=== PATIENT | male | born 1960 | race Caucasian/White ===

== ENCOUNTER → 2016-07-15 | Outpatient (CLI) | payer OTHER ==
[~2016-07-15] MED LIST: AUGMENTIN875 MG PO; BACTRIM,SEPT1 TABLET PO; CIPRO500 MG PO; DAILY VITAMIN1 EAC8 PO; DOXYCYCLINE HY100 MG PO; DULCOLAX10 MG PR; EC-NAPROSYN500 MG PO; FLAGYL500 MG PO; FLEET ENEMA-AD118 ML PR; HEPARIN SO5000 UNITS SC; KEFLEX500 MG PO; KLONOPIN0.5 M1 PO; LEVAQUIN500 MG PO; LEVAQUIN750 MG PO; LEVEMIR100 UNIT/2 SC; LISINOPRIL20 MG PO; LOW DOSE ASPIRI81 M1 PO; MELOXICAM15 MG; MORPHINE SULFAT15 MG PO; NOVOLOG PE100 UNITS/ SC; NYSTOP60 GM TP; OXYCODONE HCL5 M1 PO; PERCOCET 5/31 TABLET PO; PROTONIX40 M1 PO; QUETIAPINE FUM400 MG PO; QUETIAPINE FUMA25 MG PO; ROXICODONE5 MG PO; SEROQUEL XR150 MG PO; SEROQUEL100 MG PO; SEROQUEL200 MG PO; TYLENOL REGULA325 MG PO; TYLENOL WITH C1 EACH PO; VALIUM5 MG PO; VICODIN,LORT1 TABLET PO; ZESTRIL,PRINIVI10 M1; ZOFRAN4 MG PO
== END | disposition home or self-care (01) ==
DX: R26.2 Difficulty in walking, not elsewhere classified (principal); M62.81 Muscle weakness (generalized); M25.552 Pain in left hip; M25.652 Stiffness of left hip, not elsewhere classified
CPT/HCPCS: 97110 GP; 97150 GO; 97161 GP; 97165 GO; G8978 GP; G8979 GP; G8980 GP; G8987 GO; G8988 GO; G8989 GO

== ENCOUNTER 2016-08-11 05:32 | Inpatient (IN) | payer OTHER ==
[~2016-08-11] VITALS: Ht 170.2 cm; Wt 111.1 kg
[~2016-08-11 05:32] MED LIST changes: +LEVEMIR FL100 UNIT/1 SC; +METFORMIN HCL500 MG PO
[2016-08-11 06:33] VITALS: BP 171/117
[2016-08-11 06:43] LABS: POINT-OF-CARE METER ID UU14174212
[2016-08-11 07:19] VITALS: BP 156/96
[2016-08-11 09:42] LABS: POINT-OF-CARE METER ID UU13113675
[2016-08-11 11:24] LABS: HEMATOCRIT 43.7 % (38.0-50.0); MCH 30.1 PG (29.0-34.0); MCV 91.2 FL (86-99); MEAN PLAT.VOLUME 9.4 uM^3 (9.0-12.4); PLATELET COUNT 429 K/uL (156-360); RBC DIS.WIDTH-SD 54.4 % (39-53); RED BLOOD COUNT 4.79 M/uL (4.00-5.50)
[2016-08-11 11:47] LABS: WHITE BLOOD COUNT 24.5 K/uL (4.1-10.2)
[2016-08-11 12:27] VITALS: BP 151/94
[2016-08-11 12:33] LABS: POINT-OF-CARE METER ID UU13113712
[2016-08-11 15:48] VITALS: BP 135/62
[2016-08-11 16:37] LABS: POINT-OF-CARE METER ID UU13113712
[2016-08-11 20:05] VITALS: BP 143/98
[2016-08-11 22:10] LABS: POINT-OF-CARE METER ID UU13113712
[2016-08-12] VITALS (7 sets, daily range): BP systolic 119–140; BP diastolic 65–90
[2016-08-12 05:55] LABS: ANION GAP 8 MEQ/L (2-14); CHLORIDE 102 MEQ/L (99-109); GFR ESTIMATE (CALCULATED) > 59 mL/min/; GLUCOSE 140 mg/dL (70-99); POTASSIUM 4.6 MEQ/L (3.7-5.4); SAMPLE HEMOLYSIS CHECK 0; SAMPLE ICTERIC CHECK 0; SAMPLE LIPEMIA CHECK 0; SODIUM 136 MEQ/L (136-147); UREA NITROGEN (BUN) 13 mg/dL (9-23)
[2016-08-12 06:08] LABS: HEMATOCRIT 40.5 % (38.0-50.0); MCV 91.2 FL (86-99)
[2016-08-12 11:44] LABS: POINT-OF-CARE METER ID UU13113712
[2016-08-12 16:18] LABS: POINT-OF-CARE METER ID UU13113712
[2016-08-12 22:14] LABS: POINT-OF-CARE METER ID UU13113712
[2016-08-13 00:28] VITALS: BP 116/62
[2016-08-13 04:00] VITALS: BP 130/79
[2016-08-13 05:30] LABS: HEMATOCRIT 41.4 % (38.0-50.0); MCV 91.4 FL (86-99)
[2016-08-13 05:53] LABS: ANION GAP 7 MEQ/L (2-14); CHLORIDE 104 MEQ/L (99-109); GFR ESTIMATE (CALCULATED) > 59 mL/min/; GLUCOSE 118 mg/dL (70-99); POTASSIUM 4.1 MEQ/L (3.7-5.4); SAMPLE HEMOLYSIS CHECK 0; SAMPLE ICTERIC CHECK 0; SAMPLE LIPEMIA CHECK 0; SODIUM 138 MEQ/L (136-147); UREA NITROGEN (BUN) 13 mg/dL (9-23)
[2016-08-13 07:52] LABS: POINT-OF-CARE METER ID UU13113712
[2016-08-13 08:00] VITALS: BP 128/82
[2016-08-13] MEDS ORDERED: CELECOXIB200 MG PO (08:26)
[2016-08-13] MEDS ORDERED: LOVENOX40 MG/0.4 SC (08:26)
[2016-08-13] MEDS ORDERED: ENDOCET 5-3251 EACH PO (08:26)
[2016-08-13] MEDS ORDERED: DOCUSATE SODIU100 MG PO (08:26)
[2016-08-13 11:33] LABS: POINT-OF-CARE METER ID UU13113712
[2016-08-13 12:00] VITALS: BP 129/80
[2016-08-13 14:04] LABS: POINT-OF-CARE METER ID UU13113712
[2016-08-13 15:10] VITALS: BP 123/85
== END 2016-08-13 15:15 | disposition home or self-care (01) | DRG 470 ==
LOC: 2SOUTH 05:32 → 3WEST 11:49 → 2SOUTH 13:13 → 3WEST 08-13 15:15
PROVIDERS: Orthopaedic Surgery; Physician Assistant
PROC: 0SRB02A Replacement of Left Hip Joint with Metal on Polyethylene Synthetic Substitute, Uncemented, Open Approach (ICD-10-PCS; principal; 2016-08-11)
DX: M16.12 Unilateral primary osteoarthritis, left hip (principal); Z68.41 Body mass index [BMI] 40.0-44.9, adult; I10 Essential (primary) hypertension; E11.9 Type 2 diabetes mellitus without complications; F31.9 Bipolar disorder, unspecified; Z87.442 Personal history of urinary calculi; Z87.891 Personal history of nicotine dependence
CPT/HCPCS: 73502; 80048; 82948; 85014; 85018; 85027; J0131; J0360; J0690; J1100; J1650; J1815; J2250; J2405; J3010; J7050

== ENCOUNTER 2017-01-11 21:28 | Inpatient (IN) | payer OTHER ==
[~2017-01-11] VITALS: Ht 170.2 cm; Wt 114.1 kg
[~2017-01-11 21:28] MED LIST changes: +CELECOXIB200 MG PO; +DOCUSATE SODIU100 MG PO; +ENDOCET 5-3251 EACH PO; +LOVENOX40 MG/0.4 SC
[2017-01-12 05:48] VITALS: BP 139/87
[2017-01-12 06:34] LABS: POINT-OF-CARE METER ID UU14174212
[2017-01-12 10:13] LABS: POINT-OF-CARE METER ID UU13113675; POINT-OF-CARE USER ID 515036437
[2017-01-12 10:19] LABS: HEMATOCRIT 42.8 % (38.0-50.0); MCH 30.4 PG (29.0-34.0); MCHC 33.4 G/DL (30.0-36.0); MCV 90.9 FL (86-99); MEAN PLAT.VOLUME 9.2 uM^3 (9.0-12.4); PLATELET COUNT 431 K/uL (156-360); RBC DIS.WIDTH-CV 16.7 % (11.8-14.6); RBC DIS.WIDTH-SD 56.2 % (39-53); WHITE BLOOD COUNT 21.8 K/uL (4.1-10.2)
[2017-01-12 10:34] LABS: RED BLOOD COUNT 4.71 M/uL (4.00-5.50)
[2017-01-12 11:20] VITALS: BP 129/83
[2017-01-12 12:21] LABS: POINT-OF-CARE METER ID UU13113712
[2017-01-12 16:02] VITALS: BP 117/79
[2017-01-12 16:26] LABS: POINT-OF-CARE METER ID UU13113712
[2017-01-12 19:51] VITALS: BP 121/83
[2017-01-12 22:01] LABS: POINT-OF-CARE METER ID UU13113712
[2017-01-13 04:12] VITALS: BP 107/67
[2017-01-13 05:11] LABS: HEMATOCRIT 41.1 % (38.0-50.0); MCH 29.6 PG (29.0-34.0); MCHC 33.3 G/DL (30.0-36.0); MCV 88.8 FL (86-99); PLATELET COUNT 409 K/uL (156-360); RBC DIS.WIDTH-CV 16.5 % (11.8-14.6); RBC DIS.WIDTH-SD 53.9 % (39-53); RED BLOOD COUNT 4.63 M/uL (4.00-5.50); WHITE BLOOD COUNT 16.2 K/uL (4.1-10.2)
[2017-01-13 05:37] LABS: CHLORIDE 105 mEq/L (99-109); POTASSIUM 4.5 mEq/L (3.7-5.4); SODIUM 136 mEq/L (136-147)
[2017-01-13 05:38] LABS: GLUCOSE 132 mg/dL (70-99)
[2017-01-13 05:40] LABS: ANION GAP 6 MEQ/L (2-14)
[2017-01-13 05:42] LABS: GFR ESTIMATE (CALCULATED) > 59 mL/min/
[2017-01-13 05:43] LABS: UREA NITROGEN (BUN) 12 mg/dL (9-23)
[2017-01-13 06:19] LABS: POINT-OF-CARE METER ID UU13113712
[2017-01-13 07:38] VITALS: BP 118/67
[2017-01-13 11:28] LABS: POINT-OF-CARE METER ID UU13113712
[2017-01-13 12:22] VITALS: BP 105/64
[2017-01-13 15:37] VITALS: BP 107/67
[2017-01-13 16:23] LABS: POINT-OF-CARE METER ID UU13113712
[2017-01-13 20:12] VITALS: BP 113/74
[2017-01-13 21:47] LABS: POINT-OF-CARE METER ID UU13113712
[2017-01-13 23:37] VITALS: BP 116/81
[2017-01-14 04:19] VITALS: BP 108/68
[2017-01-14 07:26] LABS: POINT-OF-CARE METER ID UU13113712
[2017-01-14] MEDS ORDERED: SENNA PLUS TAB1 EACH PO (08:02)
[2017-01-14] MEDS ORDERED: LOVENOX40 MG/0.4 SC (08:03)
[2017-01-14] MEDS ORDERED: CELECOXIB200 MG PO (08:03)
[2017-01-14] MEDS ORDERED: ENDOCET 5-3251 EACH PO (08:03)
[2017-01-14] MEDS ORDERED: OXYCONTIN10 MG PO (08:03)
[2017-01-14 09:46] LABS: BASOPHIL COUNT 0.1 K/uL (0-0.1); EOSINOPHIL (%) 1.7 % (0-5); EOSINOPHIL COUNT 0.2 K/uL (0-0.3); HEMATOCRIT 42.5 % (38.0-50.0); IMMATURE GRANULOCYTE (%) 0.7 % (0.0-0.7); IMMATURE GRANULOCYTE COUNT 0.1 K/uL; INSTRUMENT ABS NEUTROPHIL CT 6.6 K/uL; LYMPHOCYTE COUNT 3.5 K/uL (1.0-2.8); MCH 30.1 PG (29.0-34.0); MCHC 32.9 G/DL (30.0-36.0); MCV 91.4 FL (86-99); MEAN PLAT.VOLUME 9.4 uM^3 (9.0-12.4); MONOCYTE (%) 13.3 % (3-12); MONOCYTE COUNT 1.6 K/uL (0-0.8); NEUTROPHIL (%) 54.7 % (45-76); NEUTROPHIL COUNT 6.6 K/uL (1.8-6.4); PLATELET COUNT 414 K/uL (156-360); RBC DIS.WIDTH-CV 17.1 % (11.8-14.6); RBC DIS.WIDTH-SD 57.1 % (39-53); RED BLOOD COUNT 4.65 M/uL (4.00-5.50); WHITE BLOOD COUNT 12.1 K/uL (4.1-10.2)
[2017-01-14 11:27] LABS: POINT-OF-CARE METER ID UU13113712
[2017-01-14 12:00] VITALS: BP 110/74
== END 2017-01-14 14:54 | disposition home health service (06) | DRG 470 ==
LOC: 2SOUTH → ENRESERV 21:28 → 3WEST 01-12 05:11 → 2SOUTH 01-12 05:11 → 3WEST 01-12 10:49 → 2SOUTH 01-12 11:48 → ENPENDDIS 01-14 → 3WEST 01-14 14:54
PROVIDERS: Orthopaedic Surgery
PROC: 0SR90JA Replacement of Right Hip Joint with Synthetic Substitute, Uncemented, Open Approach (ICD-10-PCS; principal; 2017-01-12)
DX: M16.11 Unilateral primary osteoarthritis, right hip (principal); E11.9 Type 2 diabetes mellitus without complications; I10 Essential (primary) hypertension; F31.9 Bipolar disorder, unspecified; Z96.642 Presence of left artificial hip joint; Z87.442 Personal history of urinary calculi; Z87.891 Personal history of nicotine dependence
CPT/HCPCS: 73501; 80048; 82948; 85014; 85018; 85025; 85027; J0131; J0330; J0690; J1100; J1170; J1650; J1815; J2250; J2405; J3010; J7050

== ENCOUNTER 2017-07-07 20:02 | Emergency (ER) | payer OTHER ==
[~2017-07-07] VITALS: Ht 170.2 cm; Wt 94.8 kg
[~2017-07-07 20:02] MED LIST changes: +OXYCONTIN10 MG PO; +SENNA PLUS TAB1 EACH PO
[2017-07-07 21:51] LABS: AMPHETAMINE NEGATIVE (500 ng/mL); BARBITURATES NEGATIVE (200 ng/mL); BENZODIAZEPINES NEGATIVE (150 ng/mL); BUPRENORPHINE NEGATIVE (10 ng/mL); COCAINE NEGATIVE (150 ng/mL); METHADONE NEGATIVE (200 ng/mL); METHAMPHETAMINE NEGATIVE (500 ng/mL); OPIATES (MORPHINE) NEGATIVE (100 ng/mL); OXYCODONE NEGATIVE (100 ng/mL); PHENCYCLIDINE NEGATIVE (25 ng/mL); PROPOXYPHENE NEGATIVE (300 ng/mL); THC CANNABINOIDS NEGATIVE (50 ng/mL); TRICYCLIC ANTIDEPRESSANTS NEGATIVE (300 ng/mL)
[2017-07-07 23:31] LABS: HEMOGLOBIN 16.3 G/DL (12.5-16.6); MCH 30.2 PG (29.0-34.0); MCV 89.1 FL (86-99); PLATELET COUNT 402 K/uL (156-360); RBC DIS.WIDTH-CV 19.2 % (11.8-14.6); RBC DIS.WIDTH-SD 61.1 % (39-53); RED BLOOD COUNT 5.39 M/uL (4.00-5.50); WHITE BLOOD COUNT 13.6 K/uL (4.1-10.2)
[2017-07-07 23:43] LABS: CHLORIDE 109 mEq/L (99-109); POTASSIUM 3.8 mEq/L (3.7-5.4); SODIUM 142 mEq/L (136-147)
[2017-07-07 23:45] LABS: GLUCOSE 125 mg/dL (70-99)
[2017-07-07 23:48] LABS: SERUM ETHYL ALCOHOL < 10 mg/dL
[2017-07-07 23:49] LABS: CREATININE 0.8 mg/dL (0.6-1.3); GFR ESTIMATE (CALCULATED) > 59 mL/min/ (58.99-99999)
[2017-07-07 23:51] LABS: UREA NITROGEN (BUN) 16 mg/dL (9-23)
[2017-07-07 23:52] LABS: ACETAMINOPHEN (TYLENOL) < 10 mcg/mL (10-30); SALICYLATE < 5.0 MG/DL (15-30)
[2017-07-08 00:20] VITALS: BP 156/90
== END 2017-07-08 00:21 | disposition home or self-care (01) ==
LOC: EME → EDBD 20:02 → EME 20:02
PROVIDERS: Emergency Medicine
DX: F31.9 Bipolar disorder, unspecified (principal); F32.9 Major depressive disorder, single episode, unspecified; I10 Essential (primary) hypertension; Z72.0 Tobacco use; Z87.442 Personal history of urinary calculi
CPT/HCPCS: 80048; 85027; 90839; 99281; 99285; G0480; J1630

== ENCOUNTER 2017-09-07 13:20 | Emergency (ER) | payer OTHER, BC ==
[~2017-09-07] VITALS: Ht 170.2 cm; Wt 104.3 kg
[2017-09-07 14:45] LABS: BASOPHIL (%) 0.7 % (0-1); BASOPHIL COUNT 0.1 K/uL (0-0.1); EOSINOPHIL COUNT 0.2 K/uL (0-0.3); HEMATOCRIT 50.2 % (38.0-50.0); IMMATURE GRANULOCYTE (%) 0.5 % (0.0-0.7); LYMPHOCYTE (%) 18.5 % (15-42); LYMPHOCYTE COUNT 3.6 K/uL (1.0-2.8); MCH 31.4 PG (29.0-34.0); MCHC 33.9 G/DL (30.0-36.0); MCV 92.8 FL (86-99); MONOCYTE (%) 5.9 % (3-12); MONOCYTE COUNT 1.1 K/uL (0-0.8); NEUTROPHIL (%) 73.4 % (45-76); NEUTROPHIL COUNT 14.2 K/uL (1.8-6.4); PLATELET COUNT 497 K/uL (156-360); RBC DIS.WIDTH-CV 15.7 % (11.8-14.6); RBC DIS.WIDTH-SD 53.2 % (39-53); RED BLOOD COUNT 5.41 M/uL (4.00-5.50); WHITE BLOOD COUNT 19.3 K/uL (4.1-10.2)
[2017-09-07 15:01] LABS: ALBUMIN 4.5 g/dL (3.2-4.8); CHLORIDE 108 mEq/L (99-109); POTASSIUM 5.2 mEq/L (3.7-5.4); SODIUM 140 mEq/L (136-147)
[2017-09-07 15:01] LABS: APPEARANCE CLEAR ((CLEAR)); BILIRUBIN NEGATIVE; BLOOD NEGATIVE; COLOR YELLOW ((YELLOW)); GLUCOSE (STRIP) 50; KETONES NEGATIVE; LEUKOCYTES NEGATIVE; NITRITE NEGATIVE; PROTEIN (STRIP) 100; SPECIFIC GRAVITY 1.023 (1.000-1.030); UROBILINOGEN 0.2 MG/DL (0.2-1.0)
[2017-09-07 15:02] LABS: MAGNESIUM 2.6 mg/dL (1.3-2.7)
[2017-09-07 15:03] LABS: GLUCOSE 188 mg/dL (70-99)
[2017-09-07 15:04] LABS: TOTAL PROTEIN 8.4 g/dL (6.4-8.3)
[2017-09-07 15:05] LABS: TOTAL BILIRUBIN 0.4 mg/dL (0.0-1.0)
[2017-09-07 15:07] LABS: ALKALINE PHOSPHATASE 131 IU/L (3-129); GFR ESTIMATE (CALCULATED) > 59 mL/min/ (58.99-99999)
[2017-09-07 15:08] LABS: UREA NITROGEN (BUN) 14 mg/dL (9-23)
[2017-09-07 15:09] LABS: AST (GOT) 24 IU/L (2-34)
[2017-09-07 15:10] LABS: ALT (GPT) 16 IU/L (3-49)
[2017-09-07 15:22] LABS: TROP-I INTERPRETATION NEGATIVE; TROPONIN-I < 0.01 ng/mL (0.0-0.30)
[2017-09-07 15:28] LABS: BACTERIA RARE /HPF; CALCIUM OXALATE CRYSTALS 3+ /HPF; EPITHELIAL CELLS RARE /HPF; MUCUS TRACE /LPF; UCUL ADDED? NO; WHITE BLOOD CELLS 0-5 /HPF (0-5)
[2017-09-07 17:13] LABS: TROP-I INTERPRETATION NEGATIVE; TROPONIN-I < 0.01 ng/mL (0.0-0.30)
[2017-09-07 17:51] VITALS: BP 135/99
== END 2017-09-07 17:52 | disposition home or self-care (01) ==
LOC: EME 13:20
PROVIDERS: Emergency Medicine
DX: I95.1 Orthostatic hypotension (principal); E86.0 Dehydration; I10 Essential (primary) hypertension; F32.9 Major depressive disorder, single episode, unspecified; F43.10 Post-traumatic stress disorder, unspecified; F17.200 Nicotine dependence, unspecified, uncomplicated; Z82.49 Family history of ischemic heart disease and other diseases of the circulatory system
CPT/HCPCS: 71045; 80053; 81003; 82948; 83735; 84484; 85025; 93005; 99281; 99285; J7040

== ENCOUNTER 2017-10-15 16:02 | Emergency (ER) | payer OTHER, BC ==
[~2017-10-15] VITALS: Ht 170.2 cm; Wt 104.1 kg
[2017-10-15 17:30] LABS: HEMOGLOBIN 15.7 G/DL (12.5-16.6); MCH 31.5 PG (29.0-34.0); MCHC 34.1 G/DL (30.0-36.0); MCV 92.2 FL (86-99); NRBC (%) 0.1 /100 WBC (0-0); PLATELET COUNT 423 K/uL (156-360); RBC DIS.WIDTH-CV 14.5 % (11.8-14.6); RBC DIS.WIDTH-SD 48.8 % (39-53); RED BLOOD COUNT 4.99 M/uL (4.00-5.50); WHITE BLOOD COUNT 14.9 K/uL (4.1-10.2)
[2017-10-15 17:42] LABS: CHLORIDE 108 mEq/L (99-109); POTASSIUM 3.4 mEq/L (3.7-5.4); SODIUM 143 mEq/L (136-147)
[2017-10-15 17:45] LABS: GLUCOSE 113 mg/dL (70-99); TOTAL PROTEIN 7.3 g/dL (6.4-8.3)
[2017-10-15 17:47] LABS: TOTAL BILIRUBIN 0.5 mg/dL (0.0-1.0)
[2017-10-15 17:48] LABS: ALKALINE PHOSPHATASE 130 IU/L (3-129); CREATININE 0.8 mg/dL (0.6-1.3); GFR ESTIMATE (CALCULATED) > 59 mL/min/ (58.99-99999)
[2017-10-15 17:49] LABS: UREA NITROGEN (BUN) 9 mg/dL (9-23)
[2017-10-15 17:50] LABS: AST (GOT) 13 IU/L (2-34)
[2017-10-15 17:51] LABS: ALT (GPT) 12 IU/L (3-49)
[2017-10-15 17:54] LABS: TROP-I INTERPRETATION NEGATIVE; TROPONIN-I 0.02 ng/mL (0.0-0.30)
[2017-10-15 19:10] LABS: APPEARANCE CLEAR ((CLEAR)); BILIRUBIN NEGATIVE; BLOOD MODERATE; COLOR YELLOW ((YELLOW)); GLUCOSE (STRIP) NEGATIVE; KETONES NEGATIVE; LEUKOCYTES NEGATIVE; NITRITE NEGATIVE; PROTEIN (STRIP) 100; SPECIFIC GRAVITY 1.019 (1.000-1.030); UROBILINOGEN 0.2 MG/DL (0.2-1.0)
[2017-10-15 19:17] LABS: BACTERIA NONE SEEN /HPF; CALCIUM OXALATE CRYSTALS 2+ /HPF; EPITHELIAL CELLS NONE SEEN /HPF; HYALINE CASTS 0-5 /LPF; MUCUS TRACE /LPF; RED BLOOD CELLS TNTC /HPF (0-5); UCUL ADDED? YES; WHITE BLOOD CELLS 0-5 /HPF (0-5)
[2017-10-15 19:31] LABS: THYROTROPIN (TSH) 0.64 MIU/L (0.4-5.5)
[2017-10-15 20:56] LABS: TROP-I INTERPRETATION NEGATIVE; TROPONIN-I < 0.01 ng/mL (0.0-0.30)
[2017-10-15] MEDS ORDERED: LISINOPRIL20 MG PO (21:34)
[2017-10-15 21:42] VITALS: BP 169/111
== END 2017-10-15 21:43 | disposition home or self-care (01) ==
LOC: RME 16:02 → EME 16:02 → RME 21:43
PROVIDERS: Physician Assistant
DX: R00.2 Palpitations (principal); Z91.14 Patient's other noncompliance with medication regimen; E11.9 Type 2 diabetes mellitus without complications; I45.10 Unspecified right bundle-branch block; R94.31 Abnormal electrocardiogram [ECG] [EKG]; I10 Essential (primary) hypertension; F31.9 Bipolar disorder, unspecified; F32.9 Major depressive disorder, single episode, unspecified; F43.10 Post-traumatic stress disorder, unspecified; F17.200 Nicotine dependence, unspecified, uncomplicated; Z79.4 Long term (current) use of insulin; Z87.19 Personal history of other diseases of the digestive system; Z87.442 Personal history of urinary calculi; Z93.3 Colostomy status; Z82.49 Family history of ischemic heart disease and other diseases of the circulatory system; Z91.030 Bee allergy status
CPT/HCPCS: 71046; 80053; 81003; 84443; 84484; 85027; 87086; 93005; 99281; 99285

== ENCOUNTER 2017-11-23 12:40 | Emergency (ER) | payer OTHER, BC ==
[~2017-11-23] VITALS: Ht 170.2 cm; Wt 102.9 kg
[2017-11-23 14:25] LABS: CHLORIDE 104 mEq/L (99-109); SODIUM 138 mEq/L (136-147)
[2017-11-23 14:26] LABS: GLUCOSE 128 mg/dL (70-99)
[2017-11-23 14:30] LABS: CREATININE 0.9 mg/dL (0.6-1.3); GFR ESTIMATE (CALCULATED) > 59 mL/min/ (58.99-99999)
[2017-11-23 14:31] LABS: UREA NITROGEN (BUN) 12 mg/dL (9-23)
[2017-11-23 14:37] LABS: HEMATOCRIT 51.4 % (38.0-50.0); HEMOGLOBIN 17.6 G/DL (12.5-16.6); MCH 31.2 PG (29.0-34.0); MCHC 34.2 G/DL (30.0-36.0); MCV 91.1 FL (86-99); PLATELET COUNT 456 K/uL (156-360); RBC DIS.WIDTH-CV 14.4 % (11.8-14.6); RBC DIS.WIDTH-SD 48.6 % (39-53); RED BLOOD COUNT 5.64 M/uL (4.00-5.50); TROP-I INTERPRETATION NEGATIVE; TROPONIN-I < 0.01 ng/mL (0.0-0.30); WHITE BLOOD COUNT 13.6 K/uL (4.1-10.2)
[2017-11-23] MEDS ORDERED: ANTIVERT25 MG PO (18:56)
[2017-11-23 19:17] VITALS: BP 155/121
== END 2017-11-23 19:21 | disposition home or self-care (01) ==
LOC: EME 12:40
PROVIDERS: Nurse Practitioner Family
DX: I10 Essential (primary) hypertension (principal); I77.9 Disorder of arteries and arterioles, unspecified; R94.31 Abnormal electrocardiogram [ECG] [EKG]; F31.9 Bipolar disorder, unspecified; F32.9 Major depressive disorder, single episode, unspecified; F43.10 Post-traumatic stress disorder, unspecified; F17.200 Nicotine dependence, unspecified, uncomplicated; Z79.4 Long term (current) use of insulin; Z93.3 Colostomy status; Z87.19 Personal history of other diseases of the digestive system; Z87.442 Personal history of urinary calculi; Z87.828 Personal history of other (healed) physical injury and trauma; Z91.030 Bee allergy status
CPT/HCPCS: 70450; 70544; 70551; 71046; 80048; 84484; 85027; 93005; 99281; 99285; J7030

== ENCOUNTER 2017-11-29 13:09 | Emergency (ER) | payer OTHER, BC ==
[~2017-11-29] VITALS: Ht 170.2 cm; Wt 100.7 kg
[~2017-11-29 13:09] MED LIST changes: +ANTIVERT25 MG PO
[2017-11-29 13:45] LABS: CHLORIDE 105 mEq/L (99-109); POTASSIUM 3.6 mEq/L (3.7-5.4); SODIUM 140 mEq/L (136-147)
[2017-11-29 13:46] LABS: GLUCOSE 137 mg/dL (70-99)
[2017-11-29 13:50] LABS: CREATININE 0.7 mg/dL (0.6-1.3); GFR ESTIMATE (CALCULATED) > 59 mL/min/ (58.99-99999)
[2017-11-29 13:51] LABS: HEMATOCRIT 50.7 % (38.0-50.0); HEMOGLOBIN 17.4 G/DL (12.5-16.6); MCH 31.1 PG (29.0-34.0); MCHC 34.3 G/DL (30.0-36.0); MCV 90.7 FL (86-99); PLATELET COUNT 434 K/uL (156-360); RBC DIS.WIDTH-CV 14.2 % (11.8-14.6); RBC DIS.WIDTH-SD 47.7 % (39-53); RED BLOOD COUNT 5.59 M/uL (4.00-5.50); UREA NITROGEN (BUN) 10 mg/dL (9-23); WHITE BLOOD COUNT 11.7 K/uL (4.1-10.2)
[2017-11-29 13:58] LABS: TROP-I INTERPRETATION NEGATIVE; TROPONIN-I < 0.01 ng/mL (0.0-0.30)
[2017-11-29 17:10] LABS: TROP-I INTERPRETATION NEGATIVE; TROPONIN-I < 0.01 ng/mL (0.0-0.30)
[2017-11-29] MEDS ORDERED: ANTIVERT25 MG PO (17:46)
[2017-11-29 19:27] VITALS: BP 157/102
== END 2017-11-29 19:31 | disposition home or self-care (01) ==
LOC: EME 13:09
PROVIDERS: Nurse Practitioner Family
DX: R42 Dizziness and giddiness (principal); R07.89 Other chest pain; F41.9 Anxiety disorder, unspecified; E86.0 Dehydration; I10 Essential (primary) hypertension; E11.9 Type 2 diabetes mellitus without complications; Z91.14 Patient's other noncompliance with medication regimen; F31.9 Bipolar disorder, unspecified; F32.9 Major depressive disorder, single episode, unspecified; F43.10 Post-traumatic stress disorder, unspecified; Z87.442 Personal history of urinary calculi; Z87.891 Personal history of nicotine dependence; Z91.030 Bee allergy status
CPT/HCPCS: 71046; 80048; 82948; 84484; 85027; 93005; 99281; 99285; J7030

== ENCOUNTER 2017-12-03 11:45 | Emergency (ER) | payer OTHER, BC ==
[~2017-12-03] VITALS: Ht 170.2 cm; Wt 100.8 kg
[2017-12-03 12:58] LABS: HEMATOCRIT 49.4 % (38.0-50.0); HEMOGLOBIN 16.8 G/DL (12.5-16.6); MCH 31.1 PG (29.0-34.0); MCV 91.3 FL (86-99); PLATELET COUNT 406 K/uL (156-360); RBC DIS.WIDTH-CV 14.3 % (11.8-14.6); RBC DIS.WIDTH-SD 48.1 % (39-53); RED BLOOD COUNT 5.41 M/uL (4.00-5.50); WHITE BLOOD COUNT 9.7 K/uL (4.1-10.2)
[2017-12-03 13:08] LABS: CHLORIDE 106 mEq/L (99-109); POTASSIUM 4.1 mEq/L (3.7-5.4); SODIUM 141 mEq/L (136-147)
[2017-12-03 13:10] LABS: GLUCOSE 124 mg/dL (70-99)
[2017-12-03 13:14] LABS: CREATININE 0.9 mg/dL (0.6-1.3); GFR ESTIMATE (CALCULATED) > 59 mL/min/ (58.99-99999)
[2017-12-03 13:15] LABS: UREA NITROGEN (BUN) 12 mg/dL (9-23)
[2017-12-03] MEDS ORDERED: HYDROCHLOROTHIA25 MG PO (13:23)
[2017-12-03] MEDS ORDERED: GLUCOPHAGE500 MG PO (13:23)
[2017-12-03 13:39] VITALS: BP 173/115
== END 2017-12-03 13:44 | disposition home or self-care (01) ==
LOC: EME 11:45
PROVIDERS: Physician Assistant
DX: I10 Essential (primary) hypertension (principal); E11.65 Type 2 diabetes mellitus with hyperglycemia; Z91.14 Patient's other noncompliance with medication regimen; Z79.4 Long term (current) use of insulin; R42 Dizziness and giddiness; Z87.891 Personal history of nicotine dependence
CPT/HCPCS: 80048; 85027; 99281; 99284